=== PATIENT | male | born 1960 | race Caucasian/White ===

== ENCOUNTER → 2021-08-18 | Outpatient (CLI) | payer SELFPAY ==
--- NOTE | 2021-08-19 11:22 | KCIC ---
EXAMINATION: XR CHEST 2V CLINICAL HISTORY: Chronic productive cough, posterior chest pain. Hx. Covid 1.5 yrs. ago. EXAM DATE/TIME: 08/18/2021 1:18 PM COMPARISON: None FINDINGS: Lines, Tubes, and Devices: None. Cardiomediastinal Silhouette: Within normal limits. Lungs and Pleura: No evidence of focal airspace consolidation or pleural effusion. Pulmonary vasculat ure unremarkable. Bones and Soft Tissues: Degenerative changes in the thoracic spine. IMPRESSION: No evidence of acute cardiopulmonary abnormality. Electronically signed by: Augusto Rodríguez DO (08/19/2021 6:53 AM) [facility]
== END ==
LOC: KCIC 10:32
PROVIDERS: ATTEND Otolaryngology
DX: M47.814 Spondylosis without myelopathy or radiculopathy, thoracic region (principal); R05.3 Chronic cough; R07.89 Other chest pain
CPT/HCPCS: 71046